=== PATIENT | female | born 1965 | race Caucasian/White ===

== ENCOUNTER 2016-05-05 07:03 | Day surgery (SDC) | payer MEDICARE, OTHER ==
--- NOTE | ~2016-05-05 | EGD ---
EGD REPORT [facility] [address] [place] [place] [id number] NAME: ASPEN URIARTE : [birth year] STATUS : [place] [facility] [place]#: [id number] AGE: 50 ADM/REG DATE : 05/05/16 MR#: [id number] REPORT SERV DATE: 05/05/16 DICTATED BY: BRIGITTE GOLD DATE: 05/05/16 REPORT STATUS : Draft [facility]ANS[facility]IB[facility] BY: [facility] DATE: 05/05/16 Endoscopy Center Patient Name: Aspen Uriarte Date of : 1965 Attending MD: BRIGITTE GOLD MD Procedure Date No Time: 05/05/2016 Procedure: Colonoscopy Indications: Screening for colorectal malignant neoplasm Referring MD: JES ARAUJO Medicines: Propofol per Anesthesia Complications: No immediate complications. Procedure: Pre-Anesthesia Assessment: - ASA Grade Assessment: III - A patient with severe systemic disease. After I obtained informed consent, the scope was passed under direct vision. Throughout the procedure, the patient's blood pressure, pulse, and oxygen saturations were monitored continuously. The CF [id number] was introduced through the anus and advanced to the terminal ileum. The appendiceal orifice, terminal ileum and rectum were photographed. The colonoscopy was performed without difficulty. The patient tolerated the procedure well. The quality of the bowel preparation was good. Findings: The perianal and digital rectal examinations were normal. The terminal ileum appeared normal. The colon (entire examined portion) appeared normal. Non-bleeding internal hemorrhoids were found during retroflexion and were mild, small and Grade I (internal hemorrhoids that do not prolapse). Impression: - The examined portion of the ileum was normal. - The entire examined colon is normal. - Non-bleeding internal hemorrhoids. Recommendation: - Patient has a contact number available for emergencies. The signs and symptoms of potential delayed complications were discussed with the patient. Return to normal activities tomorrow. Written discharge instructions were provided to the patient. - Return to previous diet. - Continue present medications. - Repeat colonoscopy in 10 years for screening purposes. - Return to my office as previously scheduled. - Discharge patient to home. EGD REPORT [facility] [address] [place] [address] [place]. [address] NAME: ASPEN URIARTE : [birth year] STATUS : REG [facility]#: [id number] AGE: 50 ADM/REG DATE : 05/05/16 MR#: [id number] REPORT SERV DATE: 05/05/16 DICTATED BY: BRIGITTE GOLD DATE: 05/05/16 REPORT STATUS : Draft TRANSCRIBED BY: [employer] DATE: 05/05/16 Procedure Code(s): --- Professional --- G0121, Colorectal cancer screening; colonoscopy on individual not meeting criteria for high risk Diagnosis Code(s): --- Professional --- K64.0, First degree hemorrhoids Z12.11, Encounter for screening for malignant neoplasm of colon CPT copyright 2013 [employer]. All rights reserved. The codes documented in this report are preliminary and upon department head college or university review may be revised to meet current compliance requirements. Brigitte Gold MD BRIGITTE GOLD MD 05/05/2016 9:59 AM This report has been signed electronically. Number of Addenda: 0 Note Initiated On: 05/05/2016 9:30 AM Scope Withdrawal Time 0 hours 6 minutes 54 seconds [address] [facility] [place] [id number]
[~2016-05-05 07:03] MED LIST: AVITA; BABY OIL; BACTROINT TOP; BUSPAR15 M1 PO; BUSPAR30 MG PO; CETAPHIL LOTION T; CITRACAL PO; CLEOTGEL TOP; DEPAK250ER PO; DEPO PROVERA IM; DEPO-PROVER150 MG/ML IM; HYDROCHLOROT12.5 MG PO; LEXAPRO20 PO; LOP25 PO; LUVOX100 PO; MIACALCIN NAS; MIRALAX POWDER1 PKT PO; NEXIUM40 PO; SEROQUEL1C PO; SEROQUEL400 MG PO; [UNRECOGNIZED DRUG - OTHER] TOP; [UNRECOGNIZED DRUG - SUPPLY]
== END 2016-05-05 23:59 | disposition home health service (06) ==
LOC: DMU 07:03
PROVIDERS: Internal Medicine Gastroenterology
PROC: 0DJD8ZZ Inspection of Lower Intestinal Tract, Via Natural or Artificial Opening Endoscopic (ICD-10-PCS; principal; 2016-05-05 08:30)
DX: Z12.11 Encounter for screening for malignant neoplasm of colon (principal); K64.0 First degree hemorrhoids; I10 Essential (primary) hypertension; K21.9 Gastro-esophageal reflux disease without esophagitis; F41.9 Anxiety disorder, unspecified; M85.80 Other specified disorders of bone density and structure, unspecified site; F63.9 Impulse disorder, unspecified; F42.9 Obsessive-compulsive disorder, unspecified; Z88.8 Allergy status to other drugs, medicaments and biological substances
CPT/HCPCS: 84703